=== PATIENT | male | born 1945 | race Caucasian/White ===

== ENCOUNTER 2024-08-29 11:00 | Inpatient (IN) | payer OTHER ==
[2024-08-29 12:40] LABS: BASO % 0.4 % (0-2.0); EOS % 0.8 % (0-4.5); HEMATOCRIT 43.2 % (35.4-49); HEMOGLOBIN 14.4 GM/dL (11.7-16.9); LYMPH % 9.9 % (8-40); MCH 33.4 pg (25.7-33.7); MCHC 33.3 g/dl (32.0-35.9); MEAN CELL VOLUME 100.2 fl (80-96); MEAN PLT VOLUME 8.6 fl (7.5-11.1); MONO % 10.6 % (3.8-10.2); NEUT % 78.3 % (42.8-82.8); PLATELET COUNT 191 10^3/uL (134-434); RBC 4.32 M/mm3 (4.00-5.60); RDW 13.2 % (11.9-15.9); WHITE BLOOD COUNT 5.5 K/mm3 (4.0-10.0)
[2024-08-29 12:59] LABS: POTASSIUM 4.2 mmol/L (3.5-5.1)
[2024-08-29 13:02] LABS: CALCIUM 9.2 mg/dL (8.5-10.1)
[2024-08-29 13:03] LABS: ALBUMIN 3.8 g/dl (3.4-5.0); BLOOD UREA NITROGEN 13.6 mg/dL (7-18)
[2024-08-29 13:06] LABS: BILIRUBIN,TOTAL 0.7 mg/dL (0.2-1); CREATININE 0.9 mg/dL (0.55-1.3)
[2024-08-29 13:08] LABS: TOT PROT 6.4 g/dl (6.4-8.2)
[2024-08-29 14:06] LABS: HIV INTERPRETATION NEGATIVE (NEGATIVE)
[2024-08-29 16:32] VITALS: BMI 21.4
[2024-08-29] MEDS: ENOXAPARIN NA (PORCINE) 40 MG/0.4 ML DISP.SYRIN SQ SCH (18:42)
[2024-08-30 11:02] LABS: BASO % 0.4 % (0-2.0); EOS % 1.6 % (0-4.5); HEMATOCRIT 41.3 % (35.4-49); HEMOGLOBIN 14.1 GM/dL (11.7-16.9); LYMPH % 10.2 % (8-40); MCH 33.8 pg (25.7-33.7); MCHC 34.2 g/dl (32.0-35.9); MEAN CELL VOLUME 98.6 fl (80-96); MEAN PLT VOLUME 8.6 fl (7.5-11.1); NEUT % 75.8 % (42.8-82.8); PLATELET COUNT 191 10^3/uL (134-434); RBC 4.18 M/mm3 (4.00-5.60); RDW 13.3 % (11.9-15.9); WHITE BLOOD COUNT 4.8 K/mm3 (4.0-10.0)
[2024-08-30 11:03] LABS: POTASSIUM 4.1 mmol/L (3.5-5.1)
[2024-08-30 11:05] LABS: CALCIUM 9.4 mg/dL (8.5-10.1)
[2024-08-30 11:07] LABS: ALBUMIN 3.7 g/dl (3.4-5.0); BLOOD UREA NITROGEN 17.9 mg/dL (7-18)
[2024-08-30 11:09] LABS: CREATININE 0.9 mg/dL (0.55-1.3)
[2024-08-30 11:11] LABS: BILIRUBIN,TOTAL 0.5 mg/dL (0.2-1); TOT PROT 6.3 g/dl (6.4-8.2)
[2024-08-30 11:23] LABS: INR 0.99 (0.83-1.09); PROTHROMBIN TIME (PATIENT) 11.2 SEC (9.7-13.0)
[2024-08-30 15:33] VITALS: RESP 18
[2024-08-30] MEDS ORDERED: FENTANYL CITRATE/PF 50 MCG/ML VIAL ONE ×2 (15:46→15:56)
[2024-08-30] MEDS: FENTANYL CITRATE/PF 50 MCG/ML VIAL IVPUSH SCH (15:49)
[2024-08-31 14:44] VITALS: BP 126/88; PULSE 83; TEMP 97.3
== END 2024-08-31 16:38 | disposition home or self-care (01) | DRG 181 ==
LOC: JER 11:00 → JERBED 14:20 → J6S 15:47
PROVIDERS: ADMIT Family Medicine; ATTEND Family Medicine
PROC: 0W9B30Z Drainage of Left Pleural Cavity with Drainage Device, Percutaneous Approach (ICD-10-PCS; principal; 2024-08-30)
DX: C34.32 Malignant neoplasm of lower lobe, left bronchus or lung (principal); J91.0 Malignant pleural effusion
CPT/HCPCS: 0241U-QW; 32550; 36415; 71046-TC-FY; 71250-TC; 80053; 83036; 84443; 84484; 85025; 85610; 86803; 87040; 87389; 93005; 93010; 93306-TC; 99285-25

== ENCOUNTER 2024-09-07 11:26 | Emergency (ER) | payer OTHER ==
[2024-09-07 11:52] VITALS: BP 140/110; PULSE 83; RESP 18; TEMP 97.3; BMI 16.0
[2024-09-07 12:52] LABS: HEMATOCRIT 40.7 % (35.4-49); HEMOGLOBIN 13.5 G/dL (11.7-16.9); MCH 33.4 pg (25.7-33.7); MCHC 33.2 g/dl (32.0-35.9); MEAN CELL VOLUME 100.8 fl (80-96); MEAN PLT VOLUME 8.9 fl (7.5-11.1); PLATELET COUNT 229.4 10^3/uL (134-434); RBC 4.04 10^6/uL (4.00-5.60); RDW 13.9 % (11.9-15.9); WHITE BLOOD COUNT 5.6 10^3/uL (4.0-10.8)
[2024-09-07 12:57] LABS: PLATELET ESTIMATE ADEQUATE
[2024-09-07 12:58] LABS: ALBUMIN 4.3 g/dl (3.4-5.0); ALK PHOS 65 U/L (45-117); ANION GAP 6 mmol/L (4-13); BILIRUBIN,TOTAL 0.5 mg/dl (0.2-1); CALCIUM 9.5 mg/dl (8.5-10.1); CHLORIDE 105 mmol/L (98-107); CO2 29 mmol/L (21-32); CREATININE 0.9 mg/dl (0.6-1.3); GLUCOSE,RANDOM 89 mg/dl (74-106); POTASSIUM 4.1 mmol/L (3.5-5.1); SGOT/AST 14 U/L (15-37); SGPT/ALT 9 U/L (7-52); SODIUM 140 mmol/L (136-145); TOT PROT 6.2 g/dl (6.4-8.2)
== END 2024-09-07 13:37 | disposition home or self-care (01) ==
LOC: FER 11:26
DX: R42 Dizziness and giddiness (principal)
CPT/HCPCS: 36415; 71046-TC-FY; 80053; 84484; 85027; 86850; 86900; 86901; 93005; 99285-25